=== PATIENT | female | born 1960 | race African-American/Black ===

== ENCOUNTER 2024-03-03 22:15 | Emergency (ER) | payer OTHER ==
[~2024-03-03 22:15] MED LIST: LIDOCAINE PATCH REMOVAL MC SCH
[2024-03-03 22:33] VITALS: PULSE 83; RESP 18; TEMP 98.6; BMI 31.2
[2024-03-03] MEDS ORDERED: CYCLOBENZAPRINE HCL 5 MG TABLET ONE (23:09)
[2024-03-03] MEDS ORDERED: LIDOCAINE 4% PATCH TP ONE (23:09)
[2024-03-03] MEDS: CYCLOBENZAPRINE HCL 10 MG TABLET (FP) PO ONE (23:14)
[2024-03-03] MEDS: LIDOCAINE 5% TOPICAL PATCH TP ONE ×2 (23:14)
[2024-03-03 23:53] VITALS: BP 149/90
[2024-03-03] MEDS ORDERED: KETOROLAC TROMETHAMINE 30 MG/1 ML VIAL ONE (23:58)
[2024-03-04] MEDS: KETOROLAC TROMETHAMINE 30 MG/1 ML VIAL IM ONE (00:02)
== END 2024-03-04 01:23 | disposition home or self-care (01) ==
LOC: JER 22:15
PROC: 3E0133Z Introduction of Anti-inflammatory into Subcutaneous Tissue, Percutaneous Approach (ICD-10-PCS; principal; 2024-03-03)
DX: M25.512 Pain in left shoulder (principal); M25.522 Pain in left elbow
CPT/HCPCS: 73030-TC-LT-FY; 73070-TC-LT-FY; 93005; 93010; 99284-25

== ENCOUNTER 2024-06-14 11:19 | Emergency (ER) | payer OTHER ==
[2024-06-14 13:12] VITALS: BP 137/73; PULSE 97; RESP 18; TEMP 97.9; BMI 31.2
== END 2024-06-14 12:16 | disposition home or self-care (01) ==
LOC: JERFT 11:19
DX: M54.9 Dorsalgia, unspecified (principal); G89.29 Other chronic pain
CPT/HCPCS: 99282-25

== ENCOUNTER 2024-10-13 10:20 | Emergency (ER) | payer OTHER ==
[2024-10-13 10:29] VITALS: BP 122/79; PULSE 94; RESP 16; TEMP 98.4; BMI 35.5
[2024-10-13] MEDS ORDERED: LIDOCAINE 4% PATCH TP ONE (10:52)
[2024-10-13] MEDS ORDERED: NAPROXEN 500 MG TABLET ONE (10:52)
[2024-10-13] MEDS: LIDOCAINE 4% PATCH TP ONE (11:02)
[2024-10-13] MEDS: NAPROXEN 500 MG TABLET PO ONE (11:03)
== END 2024-10-13 12:57 | disposition home or self-care (01) ==
LOC: JERFT 10:20
DX: M54.2 Cervicalgia (principal); M54.6 Pain in thoracic spine; G89.29 Other chronic pain
CPT/HCPCS: 72040-TC; 99283-25